=== PATIENT | female | born 1945 | race Caucasian/White ===

== ENCOUNTER 2016-06-12 17:21 | Emergency (ER) | payer MEDICARE, OTHER ==
[~2016-06-12] VITALS: Ht 165.1 cm; Wt 102.1 kg
[~2016-06-12 17:21] MED LIST: /ESOM40CA OR; ACET500C; AZELASTINE INH; BENI20TA11; COLA100C2 PO; DIOV160T5 OR; ECOT325T5 OR; ECOT500T OR; IBUP800T OR; LASI40TA OR; LIPI20TA OR; LOPR50TA PO; NEUR300C OR; NIAS500T2 PO; PRIL20CA; PRIL40CA OR; SIMV40TA2 PO; SPIR25TA2 OR; TRAM50TA2 PO; ULTRTA PO; VALS40TA OR; VALT500T OR; VALT500T PO; VICO5TAB; VITAMIN D50000 UNT OR; VOLT1GEL TOP; astelin
[2016-06-12 21:01] LABS: BASO % 0.3 % (0.0-1.0); EOS # 0.1 K/mm3 (0.0-0.50); EOS % 1.8 % (0.0-3.0); LARGE UNSTAINED CELL # 0.1 K/mm3 (0.0-0.4); LARGE UNSTAINED CELL % 2.5 % (0.0-4.0); LYMPH # 1.2 K/mm3 (1.5-4.5); LYMPH % 21.7 % (24.0-44.0); MEAN CORPUSCULAR HEMOGLOBIN 29.3 pg (27.0-33.0); MEAN CORPUSCULAR VOLUME 83.8 fl (80.0-96.0); MONO # 0.3 K/mm3 (0.0-0.8); MONO % 6.1 % (0.0-5.0); NEUTROPHILS # 3.8 K/mm3 (1.8-7.7); NEUTROPHILS % 67.6 % (36.0-66.0); PLATELET COUNT, AUTOMATED 238 k/mm3 (150-450); RED CELL DISTRIBUTION WIDTH 13.4 % (11.5-14.5); WHITE BLOOD COUNT 5.6 K/mm3 (4.0-10.0)
[2016-06-12 21:35] LABS: ANION GAP 6 MEQ/L (8-16); BLOOD UREA NITROGEN 15 MG/DL (7-18); CARBON DIOXIDE LEVEL 33 MEQ/L (21-32); CHLORIDE LEVEL 101 MEQ/L (98-107); CREATININE FOR GFR 0.82 MG/DL (0.55-1.02); GLOMERULAR FILTRATION RATE > 60.0 (>39); GLUCOSE, FASTING 112 MG/DL (83-110); MAGNESIUM LEVEL 1.8 MG/DL (1.8-2.4); POTASSIUM SERUM 3.6 MEQ/L (3.5-5.1); SODIUM LEVEL 140 MEQ/L (136-145)
[2016-06-12 21:58] VITALS: BP 175/74
== END 2016-06-12 22:01 | disposition home or self-care (01) ==
LOC: M ED 18:40
DX: M62.831 Muscle spasm of calf (principal); I10 Essential (primary) hypertension; E78.00 Pure hypercholesterolemia, unspecified; Z88.8 Allergy status to other drugs, medicaments and biological substances; Z79.82 Long term (current) use of aspirin; Z79.899 Other long term (current) drug therapy; Z95.1 Presence of aortocoronary bypass graft; K21.9 Gastro-esophageal reflux disease without esophagitis

== ENCOUNTER → 2016-08-01 | Outpatient (CLI) | payer MEDICARE, OTHER ==
[2016-08-01 09:54] LABS: BASO % 0.4 % (0.0-1.0); EOS % 1.2 % (0.0-3.0); LARGE UNSTAINED CELL # 0.1 K/mm3 (0.0-0.4); LARGE UNSTAINED CELL % 3.1 % (0.0-4.0); LYMPH % 23.8 % (24.0-44.0); MEAN CORPUSCULAR HEMOGLOBIN 28.4 pg (27.0-33.0); MEAN CORPUSCULAR HGB CONC 34.1 g/dl (32.0-36.5); MEAN CORPUSCULAR VOLUME 83.4 fl (80.0-96.0); MONO # 0.3 K/mm3 (0.0-0.8); MONO % 7.8 % (0.0-5.0); NEUTROPHILS # 2.3 K/mm3 (1.8-7.7); NEUTROPHILS % 63.8 % (36.0-66.0); PLATELET COUNT, AUTOMATED 212 k/mm3 (150-450); RED CELL DISTRIBUTION WIDTH 13.6 % (11.5-14.5); WHITE BLOOD COUNT 3.7 K/mm3 (4.0-10.0)
[2016-08-01 10:17] LABS: ALBUMIN 3.6 GM/DL (3.2-5.2); ALBUMIN/GLOBULIN RATIO 1.38 (1.00-1.93); ALKALINE PHOSPHATASE 104 U/L (45-117); ALT/SGPT 26 U/L (12-78); ANION GAP 7 MEQ/L (8-16); AST/SGOT 17 U/L (15-37); BILIRUBIN,TOTAL 0.5 MG/DL (0.2-1.0); BLOOD UREA NITROGEN 8 MG/DL (7-18); CALCIUM LEVEL 8.6 MG/DL (8.8-10.2); CARBON DIOXIDE LEVEL 30 MEQ/L (21-32); CHLORIDE LEVEL 97 MEQ/L (98-107); CHOLESTEROL LEVEL 164 MG/DL (<200); CREATININE FOR GFR 0.74 MG/DL (0.55-1.02); GLOMERULAR FILTRATION RATE > 60.0 (>39); GLUCOSE, FASTING 106 MG/DL (83-110); POTASSIUM SERUM 3.5 MEQ/L (3.5-5.1); SODIUM LEVEL 134 MEQ/L (136-145); TOTAL PROTEIN 6.2 GM/DL (6.4-8.2); TRIGLYCERIDES LEVEL 69 MG/DL (<150)
[2016-08-01 10:42] LABS: VITAMIN B12 LEVEL 575 PG/ML (247-911)
[2016-08-01 10:43] LABS: FOLATE 14.1 NG/ML (>5.4)
== END ==
LOC: M LAB 08:50
PROVIDERS: ATTEND Emergency Medicine
DX: E78.2 Mixed hyperlipidemia (principal); I10 Essential (primary) hypertension; E55.9 Vitamin D deficiency, unspecified; R73.01 Impaired fasting glucose; R53.83 Other fatigue

== ENCOUNTER → 2017-07-08 | Outpatient (CLI) | payer MEDICARE, OTHER ==
[2017-07-08 08:47] LABS: BASO % 0.6 % (0.0-1.0); EOS # 0.1 10^3/uL (0.0-0.50); EOS % 1.7 % (0.0-3.0); HEMATOCRIT 37.4 % (36.0-47.0); HEMOGLOBIN 12.4 g/dl (12.0-15.5); IMMATURE GRANULOCYTE % 0.4 % (0-3.0); LYMPH # 1.3 10^3/uL (1.5-4.5); MEAN CORPUSCULAR HEMOGLOBIN 27.8 pg (27.0-33.0); MEAN CORPUSCULAR HGB CONC 33.2 g/dl (32.0-36.5); MEAN CORPUSCULAR VOLUME 83.9 fl (80.0-96.0); MONO # 0.5 10^3/uL (0.0-0.8); MONO % 10.4 % (0.0-5.0); NEUTROPHILS # 2.8 10^3/uL (1.8-7.7); NEUTROPHILS % 58.9 % (36.0-66.0); PLATELET COUNT, AUTOMATED 229 10^3/uL (150-450); RED BLOOD COUNT 4.46 10^6/uL (4.00-5.40); RED CELL DISTRIBUTION WIDTH 13.2 % (11.5-14.5); WHITE BLOOD COUNT 4.7 10^3/uL (4.0-10.0)
[2017-07-08 09:21] LABS: ALBUMIN 3.7 GM/DL (3.2-5.2); ALBUMIN/GLOBULIN RATIO 1.37 (1.00-1.93); ALKALINE PHOSPHATASE 106 U/L (45-117); ALT/SGPT 23 U/L (12-78); ANION GAP 6 MEQ/L (8-16); AST/SGOT 19 U/L (7-37); BILIRUBIN,TOTAL 0.6 MG/DL (0.2-1.0); BLOOD UREA NITROGEN 12 MG/DL (7-18); CALCIUM LEVEL 8.7 MG/DL (8.8-10.2); CARBON DIOXIDE LEVEL 31 MEQ/L (21-32); CHLORIDE LEVEL 102 MEQ/L (98-107); CHOLESTEROL LEVEL 155 MG/DL (<200); CHOLESTEROL RISK RATIO 2.583 (<5); CREATININE FOR GFR 0.78 MG/DL (0.55-1.30); GLOMERULAR FILTRATION RATE > 60.0 (>39); GLUCOSE, FASTING 101 MG/DL (70-100); HDL CHOLESTEROL 60 MG/DL (>40); LDL CHOLESTEROL 77.2 MG/DL (<100); NON-HDL-C 95 MG/DL; POTASSIUM SERUM 3.7 MEQ/L (3.5-5.1); SODIUM LEVEL 139 MEQ/L (136-145); TOTAL PROTEIN 6.4 GM/DL (6.4-8.2); TRIGLYCERIDES LEVEL 89 MG/DL (<150)
[2017-07-08 09:54] LABS: TOTAL 25(OH) VITAMIN D 53.2 NG/ML (30.0-100.0)
[2017-07-08 09:55] LABS: VITAMIN B12 LEVEL 458 PG/ML
[2017-07-08 10:02] LABS: FOLATE 7.7 NG/ML
[2017-07-08 10:03] LABS: ESTIMATED AVERAGE GLUCOSE 117 MG/DL (60-110); HEMOGLOBIN A1c 5.7 %
== END ==
LOC: M LAB 08:16
DX: I10 Essential (primary) hypertension (principal); E78.2 Mixed hyperlipidemia; E55.9 Vitamin D deficiency, unspecified; R73.01 Impaired fasting glucose; R53.83 Other fatigue
CPT/HCPCS: 82746

== ENCOUNTER → 2018-07-25 | Outpatient (CLI) | payer MEDICARE, OTHER ==
[~2018-07-25] MED LIST changes: -/ESOM40CA OR; +NEXI1CAP3 OR
[2018-07-25 08:11] LABS: BASO % 0.4 % (0.0-1.0); EOS # 0.1 10^3/uL (0.0-0.50); EOS % 1.8 % (0.0-3.0); MEAN CORPUSCULAR HEMOGLOBIN 28.4 pg (27.0-33.0); MEAN CORPUSCULAR HGB CONC 33.3 g/dl (32.0-36.5); MEAN CORPUSCULAR VOLUME 85.3 fl (80.0-96.0); MONO # 0.5 10^3/uL (0.0-0.8); MONO % 11.4 % (0.0-5.0); NEUTROPHILS # 2.8 10^3/uL (1.8-7.7); PLATELET COUNT, AUTOMATED 194 10^3/uL (150-450); RED BLOOD COUNT 4.57 10^6/uL (4.00-5.40); WHITE BLOOD COUNT 4.5 10^3/uL (4.0-10.0)
[2018-07-25 08:43] LABS: ALBUMIN 3.7 GM/DL (3.2-5.2); ALT/SGPT 28 U/L (12-78); BILIRUBIN,TOTAL 0.5 MG/DL (0.2-1.0); BLOOD UREA NITROGEN 12 MG/DL (7-18); CALCIUM LEVEL 8.7 MG/DL (8.8-10.2); CARBON DIOXIDE LEVEL 32 MEQ/L (21-32); CHLORIDE LEVEL 100 MEQ/L (98-107); CHOLESTEROL LEVEL 150 MG/DL (<200); CHOLESTEROL RISK RATIO 2.727 (<5); CREATININE FOR GFR 0.77 MG/DL (0.55-1.30); GLOMERULAR FILTRATION RATE > 60.0 (>39); GLUCOSE, FASTING 106 MG/DL (70-100); HDL CHOLESTEROL 55 MG/DL (>40); LDL CHOLESTEROL 76 MG/DL (<100); NON-HDL-C 95 MG/DL; POTASSIUM SERUM 4.1 MEQ/L (3.5-5.1); SODIUM LEVEL 137 MEQ/L (136-145); TOTAL PROTEIN 6.4 GM/DL (6.4-8.2); TRIGLYCERIDES LEVEL 96 MG/DL (<150)
== END ==
LOC: M LAB 07:25
PROVIDERS: ATTEND Physician Assistant
DX: E78.2 Mixed hyperlipidemia (principal); I10 Essential (primary) hypertension; G47.33 Obstructive sleep apnea (adult) (pediatric)

== ENCOUNTER → 2019-08-02 | Outpatient (CLI) | payer MEDICARE, OTHER ==
[2019-08-02 09:30] LABS: BASO % 0.9 % (0.0-1.0); EOS # 0.1 10^3/uL (0.0-0.5); EOS % 1.8 % (0.0-3.0); HEMATOCRIT 39.1 % (36.0-47.0); HEMOGLOBIN 12.8 g/dl (12.0-15.5); LYMPH # 1.2 10^3/uL (1.5-5.0); LYMPH % 26.6 % (24.0-44.0); MEAN CORPUSCULAR HEMOGLOBIN 28.4 pg (27.0-33.0); MEAN CORPUSCULAR HGB CONC 32.7 g/dl (32.0-36.5); MEAN CORPUSCULAR VOLUME 86.9 fl (80.0-96.0); MONO # 0.6 10^3/uL (0.0-0.8); MONO % 12.3 % (0.0-5.0); NEUTROPHILS # 2.6 10^3/uL (1.5-8.5); PLATELET COUNT, AUTOMATED 209 10^3/uL (150-450); WHITE BLOOD COUNT 4.6 10^3/uL (4.0-10.0)
[2019-08-02 10:00] LABS: HEMOGLOBIN A1c 6.2 %
[2019-08-02 10:04] LABS: ALBUMIN 3.6 GM/DL (3.2-5.2); ALT/SGPT 32 U/L (12-78); BILIRUBIN,TOTAL 0.4 MG/DL (0.2-1.0); BLOOD UREA NITROGEN 18 MG/DL (7-18); CALCIUM LEVEL 8.9 MG/DL (8.8-10.2); CARBON DIOXIDE LEVEL 30 MEQ/L (21-32); CHLORIDE LEVEL 106 MEQ/L (98-107); CHOLESTEROL LEVEL 146 MG/DL (<200); CHOLESTEROL RISK RATIO 2.561 (<5); GLOMERULAR FILTRATION RATE > 60.0 (>39); GLUCOSE, FASTING 108 MG/DL (70-100); HDL CHOLESTEROL 57 MG/DL (>40); LDL CHOLESTEROL 74 MG/DL (<100); NON-HDL-C 89 MG/DL; POTASSIUM SERUM 4.1 MEQ/L (3.5-5.1); SODIUM LEVEL 142 MEQ/L (136-145); TOTAL PROTEIN 6.3 GM/DL (6.4-8.2); TRIGLYCERIDES LEVEL 73 MG/DL (<150)
[2019-08-02 10:34] LABS: TOTAL 25(OH) VITAMIN D 67.2 NG/ML (30.0-100.0)
== END ==
LOC: M LAB 07:41
PROVIDERS: ATTEND Physician Assistant
DX: I10 Essential (primary) hypertension (principal); E55.9 Vitamin D deficiency, unspecified; E78.2 Mixed hyperlipidemia; R73.01 Impaired fasting glucose; G47.33 Obstructive sleep apnea (adult) (pediatric); Z79.899 Other long term (current) drug therapy

== ENCOUNTER → 2019-08-19 | Outpatient (CLI) | payer MEDICARE, OTHER ==
--- NOTE | 2019-09-01 16:54 | SLEEPCENT ---
DATE OF PROCEDURE: 08/19/2019 ORDERED BY: SAM Garcia Nocturnal polysomnography was performed for the titration of pressure therapy in this patient with known obstructive sleep apnea syndrome. For testing the patient was fit with a ResMed F30 full-face mask of small size; 4 cm of water pressure were applied to the circuit and the lights were extinguished. 7 hours and 9 minutes of data were reviewed. There were 374 minutes of sleep identified. Sleep latency was short at 4 minutes. Rapid eye movement (REM) latency was normal at 124 minutes. Sleep architecture was fairly good with 3 REM cycles. Overall sleep efficiency was 88.6%. The patient's electrocardiogram showed a sinus rhythm with an average heart rate 50 beats per minute. Some PVCs were identified during the study. Electroencephalogram (EEG) normal waveforms for awake and sleep. Respiratory events were reasonably palliated with CPAP at a pressure of +10. Scattered limb activity and remaining measures of sleep physiology were normal. IMPRESSION: Obstructive sleep apnea syndrome (G47.33). RECOMMENDATIONS: Nightly use of pressure therapy 10 cm of water.
== END ==
LOC: M SLEEP 20:00
PROVIDERS: ATTEND Physician Assistant
DX: G47.33 Obstructive sleep apnea (adult) (pediatric) (principal)

== ENCOUNTER → 2020-07-02 | Outpatient (CLI) | payer MEDICARE, OTHER ==
[2020-07-02 09:11] LABS: BASO % 0.7 % (0.0-1.0); EOS # 0.1 10^3/uL (0.0-0.5); HEMOGLOBIN 12.6 g/dl (12.0-15.5); LYMPH % 17.5 % (24.0-44.0); MEAN CORPUSCULAR HEMOGLOBIN 27.9 pg (27.0-33.0); MEAN CORPUSCULAR HGB CONC 32.3 g/dl (32.0-36.5); MEAN CORPUSCULAR VOLUME 86.3 fl (80.0-96.0); MONO # 0.6 10^3/uL (0.0-0.8); MONO % 9.6 % (2.0-8.0); NEUTROPHILS # 4.1 10^3/uL (1.5-8.5); NEUTROPHILS % 70.9 % (36.0-66.0); PLATELET COUNT, AUTOMATED 228 10^3/uL (150-450); RED BLOOD COUNT 4.52 10^6/uL (4.00-5.40); WHITE BLOOD COUNT 5.8 10^3/uL (4.0-10.0)
[2020-07-02 10:25] LABS: ALBUMIN 3.8 GM/DL (3.2-5.2); ALT/SGPT 25 U/L (12-78); BILIRUBIN,TOTAL 0.5 MG/DL (0.2-1.0); BLOOD UREA NITROGEN 19 MG/DL (7-18); CALCIUM LEVEL 9.2 MG/DL (8.8-10.2); CARBON DIOXIDE LEVEL 32 MEQ/L (21-32); CHLORIDE LEVEL 100 MEQ/L (98-107); CHOLESTEROL LEVEL 163 MG/DL (<200); CHOLESTEROL RISK RATIO 2.362 (<5); CREATININE FOR GFR 0.73 MG/DL (0.55-1.30); GLOMERULAR FILTRATION RATE > 60.0 (>39); GLUCOSE, FASTING 102 MG/DL (70-100); HDL CHOLESTEROL 69 MG/DL (>40); LDL CHOLESTEROL 74 MG/DL (<100); NON-HDL-C 94 MG/DL; POTASSIUM SERUM 3.7 MEQ/L (3.5-5.1); SODIUM LEVEL 138 MEQ/L (136-145); TOTAL PROTEIN 6.7 GM/DL (6.4-8.2); TRIGLYCERIDES LEVEL 99 MG/DL (<150)
[2020-07-02 10:26] LABS: TOTAL 25(OH) VITAMIN D 50.3 NG/ML (30.0-100.0)
[2020-07-02 10:27] LABS: HEMOGLOBIN A1c 5.9 %
== END ==
LOC: M LAB 08:31
PROVIDERS: ATTEND Physician Assistant
DX: I10 Essential (primary) hypertension (principal); E78.2 Mixed hyperlipidemia; E55.9 Vitamin D deficiency, unspecified; G47.33 Obstructive sleep apnea (adult) (pediatric); R73.01 Impaired fasting glucose; Z79.899 Other long term (current) drug therapy

== ENCOUNTER 2020-09-04 07:39 | Inpatient (IN) | payer MEDICARE, OTHER ==
[~2020-09-04] VITALS: Ht 165.1 cm; Wt 101.3 kg
[2020-09-04] MEDS ORDERED: MAGN400T2 PO ×2 (08:06→11:10)
[2020-09-04] MEDS ORDERED: HYDR12.55 PO (08:06)
[2020-09-04] MEDS ORDERED: DIOV160T9 PO ×2 (08:06→11:10)
[2020-09-04] MEDS ORDERED: BETA5OI PO (08:06)
[2020-09-04] MEDS ORDERED: ISOS1TAB36 PO ×2 (08:06→11:10)
[2020-09-04] MEDS ORDERED: HYDR-3363 PO ×2 (08:06→11:10)
[2020-09-04] MEDS ORDERED: METO1TAB87 PO ×2 (08:06→11:10)
[2020-09-04] MEDS ORDERED: OMEP40CA4 PO (08:06)
[2020-09-04] MEDS ORDERED: CALC0.02 PO (08:06)
[2020-09-04] MEDS ORDERED: CALC-190 PO (08:06)
--- NOTE | 2020-09-04 08:27 | REP ---
INDICATION: DYSPNEA/COUGH. COMPARISON: 07/22/2012. TECHNIQUE: Single portable AP view of the chest was performed. FINDINGS: There is no acute infiltrate or pulmonary edema. The heart is jbpa-ro-[id number] enlarged. There is some calcification of the thoracic aorta. Multiple sternal wires and mediastinal clips are present. IMPRESSION: No acute pulmonary disease.Viya-ti-aqjwzfnc cardiomegaly. <Electronically signed by Jace Campbell > 09/04/20 [id number]
[2020-09-04 08:28] LABS: BASO % 0.3 % (0.0-1.0); EOS # 0.1 10^3/uL (0.0-0.5); EOS % 0.8 % (0.0-3.0); HEMATOCRIT 39.9 % (36.0-47.0); HEMOGLOBIN 13.5 g/dl (12.0-15.5); LYMPH # 0.9 10^3/uL (1.5-5.0); LYMPH % 11.5 % (24.0-44.0); MEAN CORPUSCULAR HEMOGLOBIN 28.7 pg (27.0-33.0); MEAN CORPUSCULAR HGB CONC 33.8 g/dl (32.0-36.5); MEAN CORPUSCULAR VOLUME 84.9 fl (80.0-96.0); MONO # 0.6 10^3/uL (0.0-0.8); MONO % 7.1 % (2.0-8.0); NEUTROPHILS # 6.2 10^3/uL (1.5-8.5); PLATELET COUNT, AUTOMATED 205 10^3/uL (150-450); WHITE BLOOD COUNT 7.8 10^3/uL (4.0-10.0)
[2020-09-04 09:03] LABS: BLOOD UREA NITROGEN 13 MG/DL (7-18); CALCIUM LEVEL 9.6 MG/DL (8.8-10.2); CARBON DIOXIDE LEVEL 30 MEQ/L (21-32); CHLORIDE LEVEL 96 MEQ/L (98-107); CPK CREATINE PHOSPHOKINASE 177 U/L (26-192); CREATININE FOR GFR 0.76 MG/DL (0.55-1.30); GLOMERULAR FILTRATION RATE > 60.0 (>39); GLUCOSE, FASTING 109 MG/DL (70-100); MB/CK RELATIVE INDEX 1.13 (< OR =4); POTASSIUM SERUM 3.7 MEQ/L (3.5-5.1); SODIUM LEVEL 133 MEQ/L (136-145); TROPONIN I < 0.02 NG/ML (< 0.10)
[2020-09-04] MEDS ORDERED: ONDANSETRON 4MG/2ML VIAL IV ONE (09:35)
[2020-09-04 09:57] LABS: ALBUMIN 4.1 GM/DL (3.2-5.2); ALT/SGPT 37 U/L (12-78); BILIRUBIN,DIRECT 0.2 MG/DL (0.0-0.2); BILIRUBIN,TOTAL 0.6 MG/DL (0.2-1.0); LIPASE 13349 U/L (73-393); TOTAL PROTEIN 7.1 GM/DL (6.4-8.2)
[2020-09-04] MEDS ORDERED: METOPROLOL TART 25 MG TABLET PO ONE (10:00)
[2020-09-04] MEDS ORDERED: ISOSORBIDE MON. (IMDUR) 60 MG XR TAB PO ONE (10:00)
[2020-09-04] MEDS ORDERED: VALSARTAN 80 MG TAB (DIOVAN) PO ONE (10:00)
[2020-09-04] MEDS ORDERED: hydroCHLOROthiazide 12.5 MG CAPSULE PO ONE (10:00)
[2020-09-04] MEDS ORDERED: MM S100C PO (11:10)
[2020-09-04] MEDS ORDERED: VALT500T PO (11:10)
[2020-09-04] MEDS ORDERED: ASPI325T49 PO (11:10)
[2020-09-04] MEDS ORDERED: CALC600T63 PO (11:10)
[2020-09-04] MEDS ORDERED: BETA5OI TOP (11:10)
[2020-09-04] MEDS ORDERED: ERGO500029 PO (11:10)
[2020-09-04] MEDS ORDERED: OMEP-221 PO (11:10)
[2020-09-04] MEDS ORDERED: HYDR-3490 PO (11:10)
[2020-09-04] MEDS ORDERED: CALC0.009 TOP (11:10)
[2020-09-04] MEDS ORDERED: RISA150S SC (11:10)
[2020-09-04] MEDS ORDERED: NIAC500T64 PO (11:10)
[2020-09-04] MEDS ORDERED: ATOR1TAB21 PO (11:10)
--- NOTE | 2020-09-04 11:52 | REP ---
INDICATION: pancreatitis. COMPARISON: None. TECHNIQUE: Real-time sonographic evaluation of right upper quadrant performed. Study is limited due to body habitus and bowel gas. FINDINGS: The gallbladder demonstrates no evidence of intraluminal sludge or calculi, wall thickening or pericholecystic fluid. There is no intrahepatic or extrahepatic biliary dilatation, common bile duct measures 6 mm in maximum diameter. The liver demonstrates somewhat increased echotexture suggesting some degree of fibrofatty infiltration. No gross mass is seen. The pancreas is not visualized due to overlying bowel gas. The right kidney demonstrates no hydronephrosis, with a normal size of 9.3 cm in length. No free fluid is seen. IMPRESSION: Findings suggestive of diffuse fibrofatty infiltration of the liver. Otherwise negative right upper quadrant ultrasound. <Electronically signed by Jace Campbell > 09/04/20 [id number]
[2020-09-04] MEDS ORDERED: NS 1,000 ML IV SCH (12:15)
[2020-09-04] MEDS ORDERED: ONDANSETRON 4MG/2ML VIAL IV PRN ×2 (12:35→22:35)
[2020-09-04] MEDS: LR 1,000 ML IV SCH ×2 (13:05→19:45)
[2020-09-04] MEDS: GASTROGRAFIN SOLUTION 30ML PO SCH ×2 (13:25→14:00)
[2020-09-04 13:26] LABS: C REACTIVE PROTEIN QUANTITATIV 0.33 MG/DL (0.00-0.30); CHOLESTEROL LEVEL 176 MG/DL (<200); CHOLESTEROL RISK RATIO 2.285 (<5); HDL CHOLESTEROL 77 MG/DL (>40); LDL CHOLESTEROL 81 MG/DL (<100); NON-HDL-C 99 MG/DL; TRIGLYCERIDES LEVEL 92 MG/DL (<150)
[2020-09-04] MEDS: MORPHINE 2 MG/ML 1ML VIAL (J2270) IV PRN (13:26)
--- NOTE | 2020-09-04 14:13 | HPEPDOC ---
General Date of Admission Sep 04, 2020 at 12:32 Date of Service: Sep 04, 2020 Primary Care Physician: A Attending Physician: MP CH MD Chief Complaint The patient is a 75-year-old female admitted with a reason for visit of Acute Pancreatitis. Source: Patient Exam Limitations: No limitations Severity: Severe History of Present Illness Rivka Santos is a 75-year-old woman with past medical history of psoriasis which she is on Skyrizi, coronary disease status post CABG, hypertension, hyperlipidemia. Patient presents from home with acute onset of abdominal pain which started yesterday evening localized to the epigastric area. Described as a sharp pain 8 out of 10 without any radiation. This was associated with diarrhea, she denies having any nausea or vomiting. She was awoken early this morning with worsening epigastric abdominal pain and presented to the emergency room where she Have a Lipase of 13,000. A Gallbladder Ultrasound Was Unremarkable, LFTs Did Not Show Any Evidence of Biliary Obstruction. The Patient Denied Any Excess Alcohol Use. She Is Admitted to the Hospital Service for Treatment of Acute Pancreatitis. Home Medications Scheduled Aspirin (Aspirin EC) 325 Mg Tablet.dr, 325 MG PO DAILY, (Reported) Atorvastatin Calcium (Atorvastatin Calcium) 20 Mg Tablet, 20 MG PO QHS, (Reported) Betamethasone Dip (Betamethasone Dipropionate) 15 Gm Oint...g., 1 APLCT TOP 2XW, (Reported) APPLY TO AFFECTED AREAS OF PSORIASIS SAT/SUN Calcipotriene (Calcipotriene) 0.005% Cream..g., 1 APLCT TOP 5XW, (Reported) APPLY TO AFFECTED AREAS OF PSORIASIS MON-FRI Calcium Carbonate/Vitamin D3 (Calcium 600-Vit D3 400 Tablet) 1 Each Tablet, 1 TAB PO BID, (Reported) Docusate Sodium (Stool Softener) 100 Mg Capsule, 100 MG PO BID, (Reported) Ergocalciferol (Vitamin D2) (Vitamin D2) 50,000 Units Cap, 50,000 UNITS PO Q2WK, (Reported) TAKES 1ST AND 15TH OF EACH MONTH Hydrochlorothiazide (Hydrochlorothiazide) 25 Mg Tablet, 25 MG PO DAILY, (Reported) TAKES IN ADDITION TO DIOVAN HCT Hydroxyzine HCl (Hydroxyzine HCl) 25 Mg Tablet, 12.5 MG PO Q6H, (Reported) Isosorbide Mononitrate (Isosorbide Mononitrate ER) 60 Mg Tab.er.24h, 60 MG PO DAILY, (Reported) Magnesium Oxide (Magnesium Oxide) 400 Mg Tablet, 400 MG PO QHS, (Reported) Metoprolol Tartrate (Metoprolol Tartrate) 25 Mg Tablet, 12.5 MG PO DAILY, (Reported) Niacin (Niacin ER) 500 Mg Tab.er.24h, 500 MG PO QHS, (Reported) Omeprazole (Omeprazole) 40 Mg Capsule.dr, 40 MG PO DAILY, (Reported) Risankizumab-Rzaa (Skyrizi (2 Syringes) Kit) 150 Mg/1.66 Ml Syringekit, 2 SYRINGE SC Q3M, (Reported) DUE 09/05/20 Valsartan/Hydrochlorothiazide (Diovan Hct 160-25 mg Tablet) 1 Each Tablet, 1 TAB PO DAILY, (Reported) Scheduled PRN Valacyclovir HCl (Valtrex) 500 Mg Tablet, 500 MG PO DAILY PRN for COLD SORES, (Reported) Allergies Coded Allergies: lisinopril (Verified Allergy, Intermediate, itching in throat, 09/04/20) Past Medical History Medical History CAD Psoriasis Hypertension Hyperlipidemia Surgical History CABG Bilateral carpal tunnel syndrome Family History Significant Family History: No pertinent family hx Social History * Smoker: Denies Alcohol: rarely Drugs: denies Recent Travel/Sick Contacts: Reports: Recent travel (to [place] she is in the process of moving there) Psychosocial History: No pertinent psych hx A-FIB/CHADSVASC A-FIB History Current/History of A-Fib/PAF?: No Current PO Anticoag Therapy: No Review of Systems Constitutional: Denies: Chills, Fever, Night Sweats Eyes: Denies: Pain, Vision change ENT: Denies: Head Aches, Ear Pain, Dysphagia Skin: Denies: Rash, Lesions, Breakdown Pulmonary: Denies: Dyspnea, Cough Cardiovascular: Denies: Chest Pain, Palpitations, Orthopnea, Paroxysmal Noc. Dyspnea, Lt Headedness Gastrointestinal: Reports: Abdominal Pain, Diarrhea; Denies: Nausea, Vomiting, Melena, Hematochezia Genitourinary: Denies: Dysuria, Frequency, Incontinence, Retention Hematologic: Denies: Bruising, Bleeding Excessively Musculoskeletal: Denies: Neck Pain, Back Pain, Joint Pain, Muscle Pain, Spasms Neurological: Denies: Weakness, Numbness, Change in speech, Confusion Psych: Reports: Mood Normal; Denies: Depression, Memory Issues Physical Examination General Exam: Positive: Alert, No Acute Distress Eye Exam: Positive: PERRLA, Conjunctiva & lids normal, EOMI; Negative: Sclera icteric ENT Exam: Positive: Atraumatic, Mucous membr. moist/pink, Pharynx Normal Neck Exam: Positive: Supple; Negative: JVD, thyromegaly Chest Exam: Positive: Clear to auscultation, Normal air movement Heart Exam: Positive: Rate Normal, Regular Rhythm, Normal S1, Normal S2; Negative: Murmurs, Rubs Telemetry: Positive: No significant arrhythmia Abdomen Exam: Positive: Normal bowel sounds, Soft, Tenderness (epigastric); Negative: Hepatospenomegaly Extremity Exam: Positive: Normal pulses; Negative: Clubbing, Cyanosis, Edema Skin Exam: Positive: Nl turgor and temperature; Negative: Breakdown, Lesion Neuro Exam: Positive: Normal Gait, Normal Speech, Cranial Nerves 3-12 NL, Reflexes 2+ Psych Exam: Positive: Mental status NL, Mood NL, Oriented x 3 Vital Signs Vital Signs Date Time Temp Pulse Resp B/P (MAP) Pulse Ox O2 Delivery O2 Flow Rate FiO2 09/04/20 13:01 54 18 163/89 (113) 92 Room Air 09/04/20 09:41 98.2 Laboratory Data Labs 24H Laboratory Tests 2 09/04/20 07:52: Immature Granulocyte % (Auto) 0.3, Neutrophils (%) (Auto) 80.0H, Lymphocytes (%) (Auto) 11.5L, Monocytes (%) (Auto) 7.1, Eosinophils (%) (Auto) 0.8, Basophils (%) (Auto) 0.3, Neutrophils # (Auto) 6.2, Lymphocytes # (Auto) 0.9L, Monocytes # (Auto) 0.6, Eosinophils # (Auto) 0.1, Basophils # (Auto) 0.0, Nucleated Red Blood Cells % (auto) 0.0, Anion Gap 7L, Glomerular Filtration Rate > 60.0, Calcium Level 9.6, Total Bilirubin 0.6, Direct Bilirubin 0.2, Aspartate Amino Transf (AST/SGOT) 33, Alanine Aminotransferase (ALT/SGPT) 37, Alkaline Phosphatase 100, Total Creatine Kinase 177, Creatine Kinase MB 2.0, Creatine Kinase MB Relative Index 1.13, Troponin I < 0.02, C-Reactive Protein, Quantitative 0.33H, Total Protein 7.1, Albumin 4.1, Albumin/Globulin Ratio 1.4, Triglycerides Level 92, Total Cholesterol 176, LDL Cholesterol 81, Non-HDL Cholesterol (LDL + VLDL) 99, Total HDL Cholesterol 77, Cholesterol/HDL Ratio 2.2 85, Lipase 56790B CBC/BMP Laboratory Tests 09/04/20 07:52 Microbiology Microbiology 09/04/20 Respiratory Virus Panel (PCR) ([facility]) - Final, Complete RAD Interpretation STUDY: gallbladder ultrasound Rad Actions: Report Reviewed RAD Interpretation: Normal Assessment/Plan Impression/plan # acute pancreatitis; - admit to inpatient status to general medical floor Keep nothing by mouth LR 150 mg an hour IV morphine and Zofran for symptom management Check CT abdomen and pelvis with contrast, check CRP Last check CBC and CMP and CRP in a.m. Chronic conditions Coronary artery disease Hypertension Hyperlipidemia Plan / VTE VTE Prophylaxis Ordered?: Yes MP CH MD Sep 04, 2020 13:31
[2020-09-04] MEDS ORDERED: ISOVUE-370 76% 100ML VIAL As Ordered ONE (14:34)
--- NOTE | 2020-09-04 16:05 | REP ---
INDICATION: acute pancreatitis. COMPARISON: Gallbladder ultrasound 09/04/2020, CT 12/14/2009 TECHNIQUE: Oral Gastrografin per our bowel contrast protocol followed by 100 mL Isovue 370 scanning through the abdomen with the coronal and sagittal reconstructions. FINDINGS: Lung bases show minor dependent atelectatic change posterior lower lung zones right greater than left. Left atrial and ventricular enlargement without pericardial thickening or effusion sternotomy wires are seen in the lower portion of the sternum since the previous exam. No hiatal hernia. Liver not grossly enlarged has an elongated right hepatic lobe. No intrahepatic biliary dilatation or adjacent ascites. The gallbladder shows no calcified stone or mass. No splenomegaly or adjacent ascites. Adrenal glands are normal. Pancreas shows no mass, ductal dilatation or stone but there is some fat stranding and fluid tracking along the peripancreatic fat consistent with mild pancreatitis. There is no abscess or loculated fluid collection to suggest pseudocyst. No abnormal calcifications. One punctate calcification in the spleen and another tiny subcapsular low-density focus suggesting a small cyst, no upper abdominal ascites. No peripancreatic pathologic sized adenopathy. The aorta has calcifications without aneurysm and no periaortic adenopathy. Small bowel loops are contrast filled but not abnormally dilated. See no air-fluid levels. That portion of the colon seen shows no sign of colitis or diverticulitis. There is no perforation or free air in the abdomen on lung window review of all CT slices. There is facet arthropathy in the lower lumbar spine without compression deformity or destructive lesion. The visualized ribs are grossly intact. IMPRESSION: 1. Inferior to the tail of the pancreas area of stranding and small amount of the fluid without loculated fluid collection, abscess, pancreatic mass or abnormal calcification. No significant adenopathy. Findings suggest early pancreatitis. No ductal dilatation and no calcifications within the gallbladder or common bile duct/pancreatic head region. 2. Liver grossly intact. Spleen with a couple of tiny benign findings but not enlarged. No generalized ascites. 3. Stomach and duodenum without acute finding. Small bowel loops in the abdominal portions of the colon are intact. <Electronically signed by Robert Almendarez > 09/04/20 [id number]
[2020-09-04 16:21] VITALS: BP 161/68
[2020-09-04] MEDS: ENOXAPARIN 40MG/0.4ML SYRINGE (J1650 PER 10MG) SC SCH (16:22)
[2020-09-04 22:00] VITALS: BP 131/59
[2020-09-04] MEDS ORDERED: KETOROLAC 30 MG/ML 1ML VIAL IV ONE (22:30)
[2020-09-05] MEDS: LR 1,000 ML IV SCH ×3 (02:07→20:54)
--- NOTE | 2020-09-05 05:07 | ECGEPIP ---
[facility] - ED Test Date: 2020-09-04 Pat Name: OKSANA DUDLEY Department: Room: [place] [address] Gender: Female Janitorial Manager: LIZ : 1945 Requested By: Lico Wells Order Number: [id number] Reading MD: Lico Herman Measurements Intervals [place] Rate: 55 P: 67 MT: 206 QRS: 21 QRSD: 94 T: 31 QT: 434 QTc: 415 Interpretive Statements Sinus bradycardia with marked sinus arrhythmia INCOMPLETE RIGHT BUNDLE BRANCH BLOCK Cannot rule out Anterior infarct , age undetermined NO PRIORS FOR COMPARISON Electronically Signed on 09-05-2020 5:07:23 EDT by Lico Herman
[2020-09-05 06:00] VITALS: BP 141/68
[2020-09-05 06:34] LABS: HEMATOCRIT 34.1 % (36.0-47.0); HEMOGLOBIN 11.6 g/dl (12.0-15.5); MEAN CORPUSCULAR HEMOGLOBIN 28.9 pg (27.0-33.0); PLATELET COUNT, AUTOMATED 175 10^3/uL (150-450); RED BLOOD COUNT 4.01 10^6/uL (4.00-5.40); WHITE BLOOD COUNT 6.6 10^3/uL (4.0-10.0)
[2020-09-05 06:58] LABS: ALBUMIN 3.2 GM/DL (3.2-5.2); ALT/SGPT 26 U/L (12-78); BILIRUBIN,TOTAL 0.5 MG/DL (0.2-1.0); BLOOD UREA NITROGEN 9 MG/DL (7-18); C REACTIVE PROTEIN QUANTITATIV 2.28 MG/DL (0.00-0.30); CALCIUM LEVEL 8.4 MG/DL (8.8-10.2); CARBON DIOXIDE LEVEL 31 MEQ/L (21-32); CHLORIDE LEVEL 101 MEQ/L (98-107); CREATININE FOR GFR 0.57 MG/DL (0.55-1.30); GLOMERULAR FILTRATION RATE > 60.0 (>39); GLUCOSE, FASTING 78 MG/DL (70-100); LIPASE 1173 U/L (73-393); POTASSIUM SERUM 3.3 MEQ/L (3.5-5.1); SODIUM LEVEL 137 MEQ/L (136-145); TOTAL PROTEIN 5.6 GM/DL (6.4-8.2)
[2020-09-05] MEDS ORDERED: KCL 10MEQ/100ML SWI (KRUN) 10 MEQ in IV 1 EA IV ONE (08:00)
[2020-09-05] MEDS ORDERED: valACYclovir HCL 500 MG TAB PO PRN (08:35)
[2020-09-05] MEDS: ENOXAPARIN 40MG/0.4ML SYRINGE (J1650 PER 10MG) SC SCH (08:37)
[2020-09-05] MEDS ORDERED: PILL CUTTER 1 EACH XX PRN (08:55)
[2020-09-05 08:58] LABS: TROPONIN I < 0.02 NG/ML (< 0.10)
[2020-09-05] MEDS: hydrOXYzine 25 MG TAB PO SCH ×3 (09:20→17:57)
[2020-09-05] MEDS: ISOSORBIDE MON. (IMDUR) 60 MG XR TAB PO SCH (09:21)
[2020-09-05] MEDS: METOPROLOL TART 12.5 MG PER 1/2 TAB PO SCH (09:22)
[2020-09-05] MEDS: CALCIUM/VITAMIN D 500 MG TAB PO SCH ×2 (09:22→20:55)
[2020-09-05] MEDS: DOCUSATE SODIUM 100MG CAPSULE PO SCH ×2 (09:22→20:55)
[2020-09-05] MEDS: ASPIRIN ENTERIC 325 MG TAB PO SCH (09:22)
[2020-09-05] MEDS: CALCIPOTRIENE CREAM 0.005% 60GM TOP SCH (09:28)
--- NOTE | 2020-09-05 10:37 | IPNPDOC ---
Subjective Date Seen The patient was seen on 09/05/20. Subjective Chief Complaint/HPI Patient is sitting up in a chair. She reports that she has improved, she is asking to be placed on a diet. She is reporting less abdominal pain, she is not having any nausea or vomiting Objective Physical Examination General Exam: Positive: Alert, No Acute Distress Eye Exam: Positive: PERRLA, Conjunctiva & lids normal, EOMI; Negative: Sclera icteric ENT Exam: Positive: Atraumatic, Mucous membr. moist/pink, Pharynx Normal Neck Exam: Positive: Supple; Negative: JVD, thyromegaly Chest Exam: Positive: Clear to auscultation, Normal air movement Heart Exam: Positive: Rate Normal, Regular Rhythm, Normal S1, Normal S2; Negative: Murmurs, Rubs Telemetry: Positive: No significant arrhythmia Abdomen Exam: Positive: Normal bowel sounds, Soft, Tenderness (decreased epigastric tenderness to palpation); Negative: Hepatospenomegaly Extremity Exam: Positive: Normal pulses; Negative: Clubbing, Cyanosis, Edema Skin Exam: Positive: Nl turgor and temperature; Negative: Breakdown, Lesion Neuro Exam: Positive: Normal Gait, Normal Speech, Cranial Nerves 3-12 NL, Reflexes 2+ Psych Exam: Positive: Mental status NL, Mood NL, Oriented x 3 Assessment /Plan Assessment Acute idiopathic Pancreatitis Started on full liquid diet advance as tolerated Decrease IV fluids to 100 mils an hour Results of CT the abdomen and pelvis reviewed with patient at bedside Likely home in a.m. if remains stable Coronary artery disease CABG check troponin Resume Imdur Hypertension Resume home medication Mild hypokalemia Potassium supplementation ordered Plan/VTE VTE Prophylaxis Ordered?: Yes VS, [facility]&O[facility] Vital Signs/I&O Vital Signs Date Time Temp Pulse Resp B/P (MAP) Pulse Ox O2 Delivery O2 Flow Rate FiO2 09/05/20 09:22 57 141/68 09/05/20 06:00 98.6 17 94 Room Air I&O- Last 24 Hours up to 6 AM 09/05/20 06:00 Intake Total 1800 ml Output Total 350 ml Balance 1450 ml Laboratory Data 24H LABS Laboratory Tests 2 09/05/20 06:17: Nucleated Red Blood Cells % (auto) 0.0, Anion Gap 5L, Glomerular Filtration Rate > 60.0, Calcium Level 8.4L, Total Bilirubin 0.5, Aspartate Amino Transf (AST/SGOT) 18, Alanine Aminotransferase (ALT/SGPT) 26, Alkaline Phosphatase 81, Troponin I < 0.02, C-Reactive Protein, Quantitative 2.28H, Total Protein 5.6#L, Albumin 3.2#, Albumin/Globulin Ratio 1.3, Lipase 1173H CBC/BMP Laboratory Tests 09/05/20 06:17 Microbiology Microbiology 09/04/20 Respiratory Virus Panel (PCR) ([facility]) - Final, Complete MP CH MD Sep 05, 2020 10:37
[2020-09-05] MEDS: MORPHINE 2 MG/ML 1ML VIAL (J2270) IV PRN (17:59)
[2020-09-05] MEDS: MAGNESIUM OXIDE 400MG TAB (MAG-OX) PO SCH (20:54)
[2020-09-05] MEDS: NIACIN SR (NIASPAN) 500 MG TAB PO SCH (20:55)
[2020-09-05] MEDS: ATORVASTATIN 20 MG TAB PO SCH (20:55)
[2020-09-05 22:00] VITALS: BP 154/69
[2020-09-06] MEDS: hydrOXYzine 25 MG TAB PO SCH ×5 (00:06→23:46)
[2020-09-06] MEDS: LR 1,000 ML IV SCH (05:11)
[2020-09-06 06:00] VITALS: BP 134/50
[2020-09-06 07:32] LABS: C REACTIVE PROTEIN QUANTITATIV 10.4 MG/DL (0.00-0.30)
--- NOTE | 2020-09-06 09:04 | IPNPDOC ---
Subjective Date Seen The patient was seen on 09/06/20. Subjective Chief Complaint/HPI Patient is complaining of periumbilical and epigastric abdominal pain today that she is little too liberal with her diet advanced yesterday Objective Physical Examination General Exam: Positive: Alert, No Acute Distress Eye Exam: Positive: PERRLA, Conjunctiva & lids normal, EOMI; Negative: Sclera icteric ENT Exam: Positive: Atraumatic, Mucous membr. moist/pink, Pharynx Normal Neck Exam: Positive: Supple; Negative: JVD, thyromegaly Chest Exam: Positive: Clear to auscultation, Normal air movement Heart Exam: Positive: Rate Normal, Regular Rhythm, Normal S1, Normal S2; Negative: Murmurs, Rubs Telemetry: Positive: No significant arrhythmia Abdomen Exam: Positive: Normal bowel sounds, Soft, Tenderness (decreased epigastric tenderness to palpation); Negative: Hepatospenomegaly Extremity Exam: Positive: Normal pulses; Negative: Clubbing, Cyanosis, Edema Skin Exam: Positive: Nl turgor and temperature; Negative: Breakdown, Lesion Neuro Exam: Positive: Normal Gait, Normal Speech, Cranial Nerves 3-12 NL, Reflexes 2+ Psych Exam: Positive: Mental status NL, Mood NL, Oriented x 3 Assessment /Plan Assessment Acute idiopathic Pancreatitis stop IV fluids Results of CT the abdomen and pelvis reviewed with patient at bedside watch for another day Coronary artery disease CABG troponin x 2 normal Resume Imdur Hypertension Resume home medication Mild hypokalemia Potassium supplementation ordered Dispo: home in am if symptoms improved Plan/VTE VTE Prophylaxis Ordered?: Yes VS, I&O, 24H, Fishbone Vital Signs/I&O Vital Signs Date Time Temp Pulse Resp B/P (MAP) Pulse Ox O2 Delivery O2 Flow Rate FiO2 09/06/20 06:00 99.0 82 16 134/50 (78) 93 Room Air I&O- Last 24 Hours up to 6 AM 09/06/20 06:00 Intake Total 2640 ml Output Total 1475 ml Balance 1165 ml Laboratory Data 24H LABS Laboratory Tests 2 09/06/20 06:31: C-Reactive Protein, Quantitative 10.40H, Lipase 223 Microbiology Microbiology 09/04/20 Respiratory Virus Panel (PCR) ([facility]) - Final, Complete MP CH MD Sep 06, 2020 09:04
[2020-09-06] MEDS: DOCUSATE SODIUM 100MG CAPSULE PO SCH ×2 (09:44→21:24)
[2020-09-06] MEDS: CALCIUM/VITAMIN D 500 MG TAB PO SCH ×2 (09:44→21:24)
[2020-09-06] MEDS: ENOXAPARIN 40MG/0.4ML SYRINGE (J1650 PER 10MG) SC SCH (09:44)
[2020-09-06] MEDS: ASPIRIN ENTERIC 325 MG TAB PO SCH (09:44)
[2020-09-06] MEDS: METOPROLOL TART 12.5 MG PER 1/2 TAB PO SCH (09:45)
[2020-09-06] MEDS: CALCIPOTRIENE CREAM 0.005% 60GM TOP SCH (09:45)
[2020-09-06] MEDS: ISOSORBIDE MON. (IMDUR) 60 MG XR TAB PO SCH (09:45)
[2020-09-06] MEDS: MORPHINE 2 MG/ML 1ML VIAL (J2270) IV PRN ×2 (13:24→21:25)
[2020-09-06 14:00] VITALS: BP 167/74
[2020-09-06] MEDS: MAGNESIUM OXIDE 400MG TAB (MAG-OX) PO SCH (21:24)
[2020-09-06] MEDS: NIACIN SR (NIASPAN) 500 MG TAB PO SCH (21:24)
[2020-09-06] MEDS: ATORVASTATIN 20 MG TAB PO SCH (21:24)
[2020-09-06 22:00] VITALS: BP 163/90
[2020-09-07 06:00] VITALS: BP 144/69
[2020-09-07] MEDS: hydrOXYzine 25 MG TAB PO SCH (06:04)
[2020-09-07 06:44] LABS: BLOOD UREA NITROGEN 6 MG/DL (7-18); CALCIUM LEVEL 8.8 MG/DL (8.8-10.2); CARBON DIOXIDE LEVEL 33 MEQ/L (21-32); CHLORIDE LEVEL 99 MEQ/L (98-107); CREATININE FOR GFR 0.55 MG/DL (0.55-1.30); GLOMERULAR FILTRATION RATE > 60.0 (>39); GLUCOSE, FASTING 97 MG/DL (70-100); LIPASE 123 U/L (73-393); POTASSIUM SERUM 3.4 MEQ/L (3.5-5.1); SODIUM LEVEL 136 MEQ/L (136-145)
[2020-09-07] MEDS: ENOXAPARIN 40MG/0.4ML SYRINGE (J1650 PER 10MG) SC SCH (09:47)
[2020-09-07] MEDS: CALCIUM/VITAMIN D 500 MG TAB PO SCH (09:47)
[2020-09-07 09:48] VITALS: BP 158/74
[2020-09-07] MEDS: ASPIRIN ENTERIC 325 MG TAB PO SCH (09:48)
[2020-09-07] MEDS: ISOSORBIDE MON. (IMDUR) 60 MG XR TAB PO SCH (09:48)
[2020-09-07] MEDS: METOPROLOL TART 12.5 MG PER 1/2 TAB PO SCH (09:48)
[2020-09-07] MEDS: DOCUSATE SODIUM 100MG CAPSULE PO SCH (09:48)
[2020-09-07] MEDS: CALCIPOTRIENE CREAM 0.005% 60GM TOP SCH (09:49)
--- NOTE | 2020-09-07 16:59 | DSES ---
DISCHARGE SUMMARY DATE OF ADMISSION: 09/04/2020 DATE OF DISCHARGE: 09/07/2020 DISCHARGE DIAGNOSIS: 1. Acute idiopathic pancreatitis. 2. Coronary artery disease. 3. Hypertension. 4. Mild hypokalemia. PROCEDURES PERFORMED DURING THIS HOSPITALIZATION: None. CONSULTANTS ON THIS CASE: None. DISPOSITION: The patient was discharged home. CONDITION ON DISCHARGE: Stable with improvement in presenting symptoms. PERTINENT LABS: COVID and influenza panel are negative. White count 6.6, hemoglobin 11.6, hematocrit 34.1, platelet count 175. Sodium is 136, potassium 3.4, chloride 99, bicarbonate is 33, BUN is 4, creatinine is 0.55, calcium is 8.8, CRP is 14. Lipase on admission was 13,349. It has trended down to 123. Triglycerides are 92. Total bilirubin is 0.6, AST is 33, ALT is 37, alkaline phosphatase is 100. IMAGING: Studies obtained chest x-ray on review just showed chronic findings, no acute cardiopulmonary process. Ultrasound of the gallbladder showed no evidence of biliary obstructions. Please reference the report for details. CT of the abdomen and pelvis with contrast showed no acute findings other than inflammation involving the inferior tail area of the pancreas. Please reference the full report for details. DISCHARGE MEDICATIONS: 1. Aspirin 325 mg daily. 2. Atorvastatin 20 mg at bedtime. 3. Betamethasone Ointment applied topically twice a week. 4. Calcipotriene Cream 0.005% applied topically five times a week. 5. Calcium Carbonate with vitamin D-3 one tab twice daily. 6. Colace 100 mg twice daily. 7. Ergocalciferol 50,000 units every 2 weeks. 8. Hydrochlorothiazide 25 mg p.o. daily. 9. Hydroxyzine 12.5 mg every 6 hours. 10. Isosorbide 60 mg p.o. daily. 11. Magnesium Oxide 400 mg at bedtime. 12. Metoprolol Tartrate 12.5 mg p.o. daily. 13. Niacin 500 mg at bedtime. 14. Omeprazole 40 mg p.o. daily. 15. Skyrizi 150 mg subcutaneously every 3 months. 16. Valacyclovir 1,200 mg p.o. daily for cold sores. 17. Valsartan Hydrochlorothiazide 160/25 one tab p.o. daily. DISCHARGE INSTRUCTIONS: The patient is instructed to follow up with her PCP in approximately one week. She was advised to return to the hospital should she develop any recurrent abdominal pain with associated nausea and vomiting. She was advised to take a low residue diet at this time for the next several days until her symptoms have completely abated. Then she may proceed with a regular diet. FOLLOW UP LABS AT TIME OF DISCHARGE: None. HOSPITAL COURSE: Inessa is a 75-year-old woman who presented to the hospital with acute onset of abdominal pain. She was found to have a lipase of 13,[address] of the abdomen and pelvis with contrast indicating evidence of acute pancreatitis. A gallbladder ultrasound showed no evidence of biliary obstruction. The patient was admitted to the inpatient status. She was kept n.p.o., hydrated with IV fluids, pain control with IV pain medications and oral medications. Clinically the patient's lipase level normalized. She was improved. She was started on a diet and this was advanced. She proceeded to tolerate advancement in her diet and was discharged home today in stable condition. DISCHARGE PHYSICAL EXAMINATION: VITAL SIGNS: At the discharge the patient's temperature is 97.5, pulse 71, respirations 17, blood pressure is 144/69, 02 saturation 95% on room air. GENERAL APPEARANCE: Inessa is obese, in no acute distress. SKIN: Intact, no rash or jaundice. HEENT: Head is atraumatic, symmetric facial muscles, oropharynx is clear. NECK: Supple. LUNGS: Sounds are present without rales or rhonchi. HEART: S1, S2, no rubs or gallops. ABDOMEN: Soft, nondistended. She had some mild epigastric tenderness. EXTREMITIES: Without any cyanosis, clubbing or edema. A total of 30 minutes filling out discharge paperwork. BORIS
[2020-09-08] MEDS ORDERED: BETAMETHASONE DIP 0.05% OINT 15 GM TOP SCH (09:00)
== END 2020-09-07 11:26 | disposition home or self-care (01) | DRG 440 ==
LOC: M ED 07:39 → M ED INP 12:32 → M MSPAV 16:10
PROVIDERS: ADMIT Internal Medicine; ATTEND Internal Medicine
DX: K85.90 Acute pancreatitis without necrosis or infection, unspecified (principal); I10 Essential (primary) hypertension; E87.6 Hypokalemia; I25.10 Atherosclerotic heart disease of native coronary artery without angina pectoris; Z79.82 Long term (current) use of aspirin; Z79.899 Other long term (current) drug therapy; L40.8 Other psoriasis; E78.5 Hyperlipidemia, unspecified; Z88.8 Allergy status to other drugs, medicaments and biological substances

== ENCOUNTER → 2020-09-11 | Outpatient (CLI) | payer MEDICARE, OTHER ==
[~2020-09-11] MED LIST changes: +ASPI325T49 PO; +ATOR1TAB21 PO; +BETA5OI PO; +BETA5OI TOP; +CALC-190 PO; +CALC0.009 TOP; +CALC0.02 PO; +CALC600T63 PO; +DIOV160T9 PO; +ERGO500029 PO; +HYDR-3363 PO; +HYDR-3490 PO; +HYDR12.55 PO; +ISOS1TAB36 PO; +MAGN400T2 PO; +METO1TAB87 PO; +MM S100C PO; +NIAC500T64 PO; +OMEP-221 PO; +OMEP40CA4 PO; +RISA150S SC
[2020-09-11 13:32] LABS: BASO % 0.8 % (0.0-1.0); EOS # 0.1 10^3/uL (0.0-0.5); HEMATOCRIT 37.8 % (36.0-47.0); HEMOGLOBIN 12.7 g/dl (12.0-15.5); LYMPH # 1.1 10^3/uL (1.5-5.0); LYMPH % 21.4 % (24.0-44.0); MEAN CORPUSCULAR HEMOGLOBIN 28.5 pg (27.0-33.0); MEAN CORPUSCULAR HGB CONC 33.6 g/dl (32.0-36.5); MEAN CORPUSCULAR VOLUME 84.9 fl (80.0-96.0); MONO # 0.7 10^3/uL (0.0-0.8); MONO % 13.5 % (2.0-8.0); NEUTROPHILS # 3.1 10^3/uL (1.5-8.5); NEUTROPHILS % 61.9 % (36.0-66.0); PLATELET COUNT, AUTOMATED 264 10^3/uL (150-450); RED BLOOD COUNT 4.45 10^6/uL (4.00-5.40); WHITE BLOOD COUNT 5.1 10^3/uL (4.0-10.0)
[2020-09-11 14:29] LABS: ALBUMIN 3.7 GM/DL (3.2-5.2); ALT/SGPT 35 U/L (12-78); BILIRUBIN,TOTAL 0.3 MG/DL (0.2-1.0); BLOOD UREA NITROGEN 8 MG/DL (7-18); CALCIUM LEVEL 9.9 MG/DL (8.8-10.2); CARBON DIOXIDE LEVEL 28 MEQ/L (21-32); CHLORIDE LEVEL 97 MEQ/L (98-107); CREATININE FOR GFR 0.68 MG/DL (0.55-1.30); GLOMERULAR FILTRATION RATE > 60.0 (>39); GLUCOSE, FASTING 87 MG/DL (70-100); LIPASE 144 U/L (73-393); POTASSIUM SERUM 4.2 MEQ/L (3.5-5.1); SODIUM LEVEL 133 MEQ/L (136-145); TOTAL PROTEIN 6.7 GM/DL (6.4-8.2)
== END ==
LOC: M LAB 12:33
PROVIDERS: ATTEND Nurse Practitioner Family
DX: K85.90 Acute pancreatitis without necrosis or infection, unspecified (principal)

== ENCOUNTER 2021-07-31 16:06 | Emergency (ER) | payer MEDICARE, OTHER ==
[~2021-07-31] VITALS: Ht 160 cm; Wt 106.8 kg
[~2021-07-31 16:06] MED LIST changes: -OMEP-221 PO; +OMEP40CA5 PO
[2021-07-31] MEDS ORDERED: METOCLOPRAMIDE INJ 10MG/2ML VIAL (J2765 PER 1) IV ONE (17:20)
[2021-07-31] MEDS ORDERED: ACETAMINOPHEN 500 MG TAB PO ONE (17:20)
[2021-07-31] MEDS ORDERED: NS 1,000 ML IV ONE (17:20)
[2021-07-31 18:04] LABS: BASO % 0.3 % (0.0-1.0); EOS # 0.1 10^3/uL (0.0-0.5); EOS % 1.5 % (0.0-3.0); HEMOGLOBIN 12.9 g/dl (12.0-15.5); LYMPH # 1.3 10^3/uL (1.5-5.0); LYMPH % 21.5 % (24.0-44.0); MEAN CORPUSCULAR HEMOGLOBIN 28.8 pg (27.0-33.0); MEAN CORPUSCULAR HGB CONC 33.9 g/dl (32.0-36.5); MEAN CORPUSCULAR VOLUME 84.8 fl (80.0-96.0); MONO # 0.7 10^3/uL (0.0-0.8); MONO % 11.2 % (2.0-8.0); NEUTROPHILS # 3.8 10^3/uL (1.5-8.5); NEUTROPHILS % 65.3 % (36.0-66.0); PLATELET COUNT, AUTOMATED 225 10^3/uL (150-450); RED BLOOD COUNT 4.48 10^6/uL (4.00-5.40); WHITE BLOOD COUNT 5.8 10^3/uL (4.0-10.0)
[2021-07-31] MEDS ORDERED: methocarbamoL 750 MG TAB PO ONE (18:20)
[2021-07-31] MEDS ORDERED: LIDOCAINE 5% (LIDODERM) PATCH TD ONE (18:20)
[2021-07-31 18:35] LABS: ERYTHROCYTE SEDIMENTATION RATE 9 mm/hr (0-30)
[2021-07-31 18:39] LABS: C REACTIVE PROTEIN QUANTITATIV < 0.30 MG/DL (0.00-0.30); MAGNESIUM LEVEL 1.7 MG/DL (1.8-2.4)
[2021-07-31] MEDS ORDERED: KETOROLAC 30 MG/ML 1ML VIAL IV ONE (18:55)
[2021-07-31] MEDS ORDERED: MAG SULF 1GM/100ML (MAG RUN) 1 GM in IV 1 EA IV ONE (19:15)
[2021-07-31] MEDS ORDERED: REGL10TA6 PO (20:39)
[2021-07-31] MEDS ORDERED: ASPE4PAD TOP (20:39)
[2021-07-31] MEDS ORDERED: METH-1165 PO (20:39)
[2021-07-31 20:50] VITALS: BP 140/80
[2021-07-31] MEDS ORDERED: **NOTE PATIENT COMMENT** MISC XX SCH (21:00)
== END 2021-07-31 21:02 | disposition home or self-care (01) ==
LOC: M ED 16:06
DX: R51.9 Headache, unspecified (principal); M62.838 Other muscle spasm; I10 Essential (primary) hypertension; K21.9 Gastro-esophageal reflux disease without esophagitis; Z88.0 Allergy status to penicillin; Z88.8 Allergy status to other drugs, medicaments and biological substances; Z79.899 Other long term (current) drug therapy
CPT/HCPCS: 70450; 80047; 83735; 85025; 85652; 86140; 96365; 96366; 96375; 99284; J1885; J2765; J3475

== ENCOUNTER → 2021-08-09 | Outpatient (CLI) | payer MEDICARE, OTHER ==
[~2021-08-09] MED LIST changes: +ASPE4PAD TOP; +METH-1165 PO; +REGL10TA6 PO
[2021-08-09 08:48] LABS: ALBUMIN 3.9 GM/DL (3.2-5.2); ALT/SGPT 33 U/L (12-78); BILIRUBIN,TOTAL 0.4 MG/DL (0.2-1.0); BLOOD UREA NITROGEN 12 MG/DL (7-18); CALCIUM LEVEL 9.5 MG/DL (8.8-10.2); CARBON DIOXIDE LEVEL 32 MEQ/L (21-32); CHLORIDE LEVEL 103 MEQ/L (98-107); CHOLESTEROL LEVEL 176 MG/DL (<200); CREATININE FOR GFR 0.73 MG/DL (0.55-1.30); GLOMERULAR FILTRATION RATE > 60.0 (>39); GLUCOSE, FASTING 97 MG/DL (70-100); HDL CHOLESTEROL 64 MG/DL (>40); LDL CHOLESTEROL 94 MG/DL (<100); NON-HDL-C 112 MG/DL; POTASSIUM SERUM 3.6 MEQ/L (3.5-5.1); SODIUM LEVEL 138 MEQ/L (136-145); TOTAL PROTEIN 6.6 GM/DL (6.4-8.2); TRIGLYCERIDES LEVEL 89 MG/DL (<150)
== END ==
LOC: M LAB 07:49
PROVIDERS: ATTEND Nurse Practitioner Family
DX: I10 Essential (primary) hypertension (principal)

== ENCOUNTER → 2021-08-22 | Outpatient (CLI) | payer MEDICARE, OTHER | LOC: M WHC 10:36 | PROVIDERS: ATTEND Nurse Practitioner Family | DX: Z12.31 Encounter for screening mammogram for malignant neoplasm of breast (principal) ==

== ENCOUNTER → 2022-06-19 | Outpatient (CLI) | payer MEDICARE, OTHER ==
[2022-06-19 10:33] LABS: ALBUMIN 3.9 G/DL (3.2-5.2); ALKALINE PHOSPHATASE 98 U/L (46-116); ALT/SGPT 19 U/L (7.0-40); AST/SGOT 17 U/L (<34); BILIRUBIN,TOTAL 0.4 MG/DL (0.3-1.2); BLOOD UREA NITROGEN 15 MG/DL (9-23); CALCIUM LEVEL 9.6 MG/DL (8.3-10.6); CARBON DIOXIDE LEVEL 27 MMOL/L (20-31); CHLORIDE LEVEL 105 MMOL/L (98-107); CHOLESTEROL LEVEL 132 MG/DL (<200); CHOLESTEROL RISK RATIO 2.66 (<5); CREATININE FOR GFR 0.65 MG/DL (0.55-1.30); GLOMERULAR FILTRATION RATE > 60.0 (>39); GLUCOSE, FASTING 95 MG/DL (74-106); HDL CHOLESTEROL 49.6 MG/DL (>40); NON-HDL-C 82.4 MG/DL; POTASSIUM SERUM 3.9 MMOL/L (3.5-5.1); SODIUM LEVEL 138 MMOL/L (136-145); TOTAL PROTEIN 6.6 G/DL (5.7-8.2); TRIGLYCERIDES LEVEL 77 MG/DL (<150)
[2022-06-19 10:35] LABS: TOTAL 25(OH) VITAMIN D 60.3 NG/ML (20.0-100.0)
== END ==
LOC: M LAB 09:01
PROVIDERS: ATTEND Nurse Practitioner Family
DX: E78.2 Mixed hyperlipidemia (principal); I10 Essential (primary) hypertension; E55.9 Vitamin D deficiency, unspecified

== ENCOUNTER → 2022-06-19 | Outpatient (CLI) | payer MEDICARE, OTHER ==
[2022-06-19 10:07] LABS: BASO % 0.3 % (0.0-1.0); HEMATOCRIT 37.6 % (36.0-47.0); HEMOGLOBIN 12.3 g/dl (12.0-15.5); LYMPH # 0.8 10^3/uL (1.5-5.0); LYMPH % 11.4 % (24.0-44.0); MEAN CORPUSCULAR HEMOGLOBIN 27.9 pg (27.0-33.0); MEAN CORPUSCULAR HGB CONC 32.7 g/dl (32.0-36.5); MEAN CORPUSCULAR VOLUME 85.3 fl (80.0-96.0); MONO # 0.3 10^3/uL (0.0-0.8); MONO % 4.9 % (2.0-8.0); NEUTROPHILS # 5.8 10^3/uL (1.5-8.5); NEUTROPHILS % 82.8 % (36.0-66.0); PLATELET COUNT, AUTOMATED 289 10^3/uL (150-450); RED BLOOD COUNT 4.41 10^6/uL (4.00-5.40)
[2022-06-19 10:34] LABS: ALBUMIN 3.8 G/DL (3.2-5.2); ALKALINE PHOSPHATASE 100 U/L (46-116); ALT/SGPT 19 U/L (7.0-40); AST/SGOT < 8 U/L (<34); BILIRUBIN,DIRECT 0.2 MG/DL (<0.4); BILIRUBIN,TOTAL 0.4 MG/DL (0.3-1.2); BLOOD UREA NITROGEN 15 MG/DL (9-23); CALCIUM LEVEL 9.3 MG/DL (8.3-10.6); CARBON DIOXIDE LEVEL 27 MMOL/L (20-31); CHLORIDE LEVEL 106 MMOL/L (98-107); CREATININE FOR GFR 0.62 MG/DL (0.55-1.30); GLOMERULAR FILTRATION RATE > 60.0 (>39); GLUCOSE, FASTING 94 MG/DL (74-106); PHOSPHORUS LEVEL 3.5 MG/DL (2.4-5.1); SODIUM LEVEL 140 MMOL/L (136-145); TOTAL PROTEIN 6.5 G/DL (5.7-8.2)
[2022-06-19 10:37] LABS: HEPATITIS B SURFACE ANTIBODY NEGATIVE (POSITIVE)
== END ==
LOC: M LAB 09:04
PROVIDERS: ATTEND Family Medicine
DX: L40.0 Psoriasis vulgaris (principal); E78.2 Mixed hyperlipidemia; I10 Essential (primary) hypertension; E55.9 Vitamin D deficiency, unspecified; Z51.81 Encounter for therapeutic drug level monitoring; Z79.899 Other long term (current) drug therapy

== ENCOUNTER → 2022-07-31 | Outpatient (CLI) | payer MEDICARE, OTHER ==
[2022-07-31 12:02] LABS: ALBUMIN 3.5 G/DL (3.2-5.2); ALKALINE PHOSPHATASE 91 U/L (46-116); ALT/SGPT 24 U/L (7.0-40); AST/SGOT 21 U/L (<34); BILIRUBIN,TOTAL 0.6 MG/DL (0.3-1.2); BLOOD UREA NITROGEN 10 MG/DL (9-23); CALCIUM LEVEL 10.2 MG/DL (8.3-10.6); CARBON DIOXIDE LEVEL 31 MMOL/L (20-31); CHLORIDE LEVEL 100 MMOL/L (98-107); CHOLESTEROL LEVEL 153 MG/DL (<200); CHOLESTEROL RISK RATIO 2.69 (<5); CREATININE FOR GFR 0.69 MG/DL (0.55-1.30); GLOMERULAR FILTRATION RATE > 60.0 (>39); GLUCOSE, FASTING 83 MG/DL (74-106); HDL CHOLESTEROL 56.8 MG/DL (>40); LDL CHOLESTEROL 82.6 MG/DL (<100); NON-HDL-C 96.2 MG/DL; POTASSIUM SERUM 3.6 MMOL/L (3.5-5.1); SODIUM LEVEL 136 MMOL/L (136-145); TOTAL 25(OH) VITAMIN D 60.5 NG/ML (20.0-100.0); TOTAL PROTEIN 6.2 G/DL (5.7-8.2); TRIGLYCERIDES LEVEL 68 MG/DL (<150)
== END ==
LOC: M LAB 10:47
PROVIDERS: ATTEND Nurse Practitioner Family
DX: I10 Essential (primary) hypertension (principal); E78.2 Mixed hyperlipidemia; E55.9 Vitamin D deficiency, unspecified; Z79.899 Other long term (current) drug therapy

== ENCOUNTER → 2022-08-30 | Outpatient (CLI) | payer MEDICARE, OTHER ==
[2022-08-30 09:29] LABS: BLOOD UREA NITROGEN 11 MG/DL (9-23); CALCIUM LEVEL 8.7 MG/DL (8.3-10.6); CARBON DIOXIDE LEVEL 30 MMOL/L (20-31); CHLORIDE LEVEL 94 MMOL/L (98-107); GLOMERULAR FILTRATION RATE > 60.0 (>39); GLUCOSE, FASTING 124 MG/DL (74-106); POTASSIUM SERUM 3.4 MMOL/L (3.5-5.1); SODIUM LEVEL 133 MMOL/L (136-145)
== END ==
LOC: M LAB 08:39
PROVIDERS: ATTEND Internal Medicine Cardiovascular Disease
DX: I10 Essential (primary) hypertension (principal)

== ENCOUNTER → 2022-09-01 | Outpatient (CLI) | payer MEDICARE, OTHER | LOC: M WHC 10:53 | PROVIDERS: ATTEND Nurse Practitioner Family | DX: Z12.31 Encounter for screening mammogram for malignant neoplasm of breast (principal); M89.9 Disorder of bone, unspecified ==

== ENCOUNTER → 2023-06-30 | Outpatient (CLI) | payer MEDICARE, OTHER ==
[~2023-06-30] MED LIST changes: +CALC0.0017 TOP; -CALC0.009 TOP; -CALC0.02 PO; +CALC1OIN3 PO
[2023-06-30 11:08] LABS: BASO % 0.8 % (0.0-1.0); EOS # 0.1 10^3/uL (0.0-0.5); EOS % 1.3 % (0.0-3.0); HEMATOCRIT 37.8 % (36.0-47.0); LYMPH # 1.2 10^3/uL (1.5-5.0); LYMPH % 24.2 % (24.0-44.0); MEAN CORPUSCULAR HEMOGLOBIN 26.9 pg (27.0-33.0); MEAN CORPUSCULAR HGB CONC 31.7 g/dl (32.0-36.5); MEAN CORPUSCULAR VOLUME 84.8 fl (80.0-96.0); MONO # 0.5 10^3/uL (0.0-0.8); MONO % 11.2 % (2.0-8.0); NEUTROPHILS % 62.3 % (36.0-66.0); PLATELET COUNT, AUTOMATED 217 10^3/uL (150-450); RED BLOOD COUNT 4.46 10^6/uL (4.00-5.40); WHITE BLOOD COUNT 4.8 10^3/uL (4.0-10.0)
[2023-06-30 11:37] LABS: ALBUMIN 3.6 G/DL (3.2-5.2); ALKALINE PHOSPHATASE 124 U/L (46-116); ALT/SGPT 22 U/L (7.0-40); AST/SGOT 20 U/L (<34); BILIRUBIN,TOTAL 0.6 MG/DL (0.3-1.2); BLOOD UREA NITROGEN 17 MG/DL (9-23); CALCIUM LEVEL 9.4 MG/DL (8.3-10.6); CARBON DIOXIDE LEVEL 31 MMOL/L (20-31); CHLORIDE LEVEL 103 MMOL/L (98-107); CREATININE FOR GFR 0.67 MG/DL (0.55-1.30); GLOMERULAR FILTRATION RATE > 60.0 (>32); GLUCOSE, FASTING 89 MG/DL (74-106); SODIUM LEVEL 141 MMOL/L (136-145); TOTAL PROTEIN 6.1 G/DL (5.7-8.2)
[2023-06-30 11:39] LABS: TOTAL 25(OH) VITAMIN D 63.1 NG/ML (20.0-100.0)
== END ==
LOC: M LAB 09:19
PROVIDERS: ATTEND Nurse Practitioner Family
DX: I10 Essential (primary) hypertension (principal); E55.9 Vitamin D deficiency, unspecified

== ENCOUNTER → 2023-06-30 | Outpatient (CLI) | payer MEDICARE, OTHER ==
[2023-06-30 11:00] LABS: BASO % 0.9 % (0.0-1.0); EOS # 0.1 10^3/uL (0.0-0.5); EOS % 1.5 % (0.0-3.0); HEMATOCRIT 37.4 % (36.0-47.0); HEMOGLOBIN 12.1 g/dl (12.0-15.5); LYMPH # 1.1 10^3/uL (1.5-5.0); LYMPH % 24.3 % (24.0-44.0); MEAN CORPUSCULAR HEMOGLOBIN 27.4 pg (27.0-33.0); MEAN CORPUSCULAR HGB CONC 32.4 g/dl (32.0-36.5); MEAN CORPUSCULAR VOLUME 84.6 fl (80.0-96.0); MONO # 0.5 10^3/uL (0.0-0.8); MONO % 10.8 % (2.0-8.0); NEUTROPHILS # 2.9 10^3/uL (1.5-8.5); NEUTROPHILS % 62.3 % (36.0-66.0); PLATELET COUNT, AUTOMATED 226 10^3/uL (150-450); RED BLOOD COUNT 4.42 10^6/uL (4.00-5.40); WHITE BLOOD COUNT 4.7 10^3/uL (4.0-10.0)
[2023-06-30 11:23] LABS: ALBUMIN 3.6 G/DL (3.2-5.2); ALKALINE PHOSPHATASE 124 U/L (46-116); ALT/SGPT 23 U/L (7.0-40); AST/SGOT 23 U/L (<34); BILIRUBIN,DIRECT 0.1 MG/DL (<0.4); BILIRUBIN,TOTAL 0.5 MG/DL (0.3-1.2); BLOOD UREA NITROGEN 17 MG/DL (9-23); CALCIUM LEVEL 9.3 MG/DL (8.3-10.6); CARBON DIOXIDE LEVEL 31 MMOL/L (20-31); CHLORIDE LEVEL 104 MMOL/L (98-107); CREATININE FOR GFR 0.67 MG/DL (0.55-1.30); GLOMERULAR FILTRATION RATE > 60.0 (>32); GLUCOSE, FASTING 88 MG/DL (74-106); POTASSIUM SERUM 4.1 MMOL/L (3.5-5.1); SODIUM LEVEL 141 MMOL/L (136-145); TOTAL PROTEIN 6.1 G/DL (5.7-8.2)
[2023-06-30 11:30] LABS: HEPATITIS B SURFACE ANTIBODY NEGATIVE (POSITIVE)
[2023-06-30 11:56] LABS: HIV 1&2 SCREEN NEGATIVE (NEGATIVE)
[2023-06-30 12:03] LABS: HEPATITIS C VIRUS ABY INDEX < 0.02 INDEX (<0.8)
== END ==
LOC: M LAB 09:22
PROVIDERS: ATTEND Family Medicine
DX: L40.0 Psoriasis vulgaris (principal); Z11.59 Encounter for screening for other viral diseases; Z72.89 Other problems related to lifestyle